=== PATIENT | male | born 1970 | race Two or more races ===

== ENCOUNTER 2022-04-28 14:25 | Outpatient (CLI) | payer OTHER ==
[2022-04-28 15:14] LABS: Hemoglobin 15.3 g/dL (13.5-17.5); Mean Corpuscular HGB CONC 36.5 g/dL (32.0-36.0); Mean Corpuscular Hemoglobin 33.2 pg (27.0-33.0); Mean Corpuscular Volume 90.9 fl (81.2-95.1); Mean Platelet Volume 9.2 fl (7.4-10.4); Platelet Count 164 10x3/uL (150-450); RBC Distribution Width 11.8 % (11.5-14.5); Red Blood Cell (RBC) Count 4.61 10x6/uL (4.32-5.72); White Blood Cell (WBC) Count 4.3 10x3/uL (3.5-10.5)
[2022-04-28 15:33] LABS: Anion Gap 20 mmol/L (10-20); BUN (Urea Nitrogen) 12 mg/dL (8.4-25.7); Calc. Creatinine Clearance 0 mL/min (70-130); Calcium 9.5 mg/dL (7.8-10.44); Carbon Dioxide 20 mmol/L (22-29); Chloride 88 mmol/L (98-107); Estimated GFR 83; Glucose 92 mg/dL (70-105); Potassium 4.7 mmol/L (3.5-5.1); Sodium 123 mmol/L (136-145)
== END 2022-04-28 14:26 | disposition home or self-care (01) ==
LOC: LABBT 14:25
PROVIDERS: ATTEND Neurological Surgery
DX: Z01.818 Encounter for other preprocedural examination (principal); M43.16 Spondylolisthesis, lumbar region
CPT/HCPCS: 80048; 85027; 93005; 93010

== ENCOUNTER 2022-05-02 07:02 | Day surgery (SDC) | payer OTHER ==
[2022-04-29 09:23] VITALS: BMI 22.3
[2022-05-02] MEDS ORDERED: Vancomycin 1 GM VIAL ONE (08:40)
[2022-05-02] MEDS ORDERED: Fentanyl 250 MCG/5 ML VIAL ONE (09:09)
[2022-05-02] MEDS ORDERED: Sodium Chloride 0.9% 100 ML ONE (09:10)
[2022-05-02] MEDS ORDERED: CEFAZOLIN 2 GM VIAL ONE (09:10)
[2022-05-02] MEDS ORDERED: PROPOFOL 200 MG/20 ML VIAL ONE (09:24)
[2022-05-02] MEDS ORDERED: Ketorolac Tromethamine 30 MG/ML VIAL ONE (09:24)
[2022-05-02] MEDS ORDERED: NEOSTIGMINE 3 MG/3 ML SYR 3 MG/3 ML SYRINGE ONE (09:24)
[2022-05-02] MEDS ORDERED: Ondansetron PF 4 MG/2 ML Vial ONE (09:24)
[2022-05-02] MEDS ORDERED: Lidocaine 1% PF 5 ML VIAL ONE (09:24)
[2022-05-02] MEDS ORDERED: Dexamethasone 20 MG/5 ML VIAL ONE (09:24)
[2022-05-02] MEDS ORDERED: Rocuronium Bromide 10 MG/ML (10ML VIAL) ONE (09:24)
[2022-05-02] MEDS ORDERED: PHENYLEPHRINE-NS 100 MCG/ML 10 ML SYRINGE ONE (09:24)
[2022-05-02] MEDS ORDERED: Glycopyrrolate 0.2 MG/ML 5 ML SYRINGE ONE (09:24)
[2022-05-02] MEDS ORDERED: Morphine Sulfate 2 MG/ML SYRINGE SLOW IVP PRN (10:28)
[2022-05-02] MEDS ORDERED: HYDROmorphone 2 MG/ML VIAL SLOW IVP PRN (10:28)
[2022-05-02] MEDS ORDERED: Promethazine HCl 25 MG/ML VIAL IVPB PRN (10:28)
[2022-05-02] MEDS ORDERED: PACU-Morphine 4MG/ML VIAL SLOW IVP PRN (10:28)
[2022-05-02] MEDS ORDERED: Promethazine HCl 25 MG/ML VIAL IM PRN (10:28)
[2022-05-02] MEDS ORDERED: Ondansetron HCl/PF 4 MG/2 ML Vial IVP PRN (10:28)
[2022-05-02] MEDS ORDERED: Midazolam HCl 2 mg/2 ml Vial ONE (10:41)
[2022-05-02] MEDS ORDERED: Tamsulosin HCl 0.4 MG CAP ONE (11:01)
[2022-05-02] MEDS ORDERED: Fentanyl 100 MCG/2 ML VIAL ONE (11:01)
[2022-05-02] MEDS ORDERED: traMADol HCl 50 MG TAB ONE (12:38)
[2022-05-02] MEDS ORDERED: Acetaminophen/Codeine 30-300mg Tablet ONE ×2 (13:39→17:56)
[2022-05-02] MEDS ORDERED: Lorazepam 2 MG/ML VIAL ONE (16:30)
== END 2022-05-02 18:02 | disposition home or self-care (01) ==
LOC: SDC 07:02
PROVIDERS: ATTEND Neurological Surgery
PROC: 0SG3071 Fusion of Lumbosacral Joint with Autologous Tissue Substitute, Posterior Approach, Posterior Column, Open Approach (ICD-10-PCS; principal; 2022-05-02)
DX: M43.17 Spondylolisthesis, lumbosacral region (principal); I10 Essential (primary) hypertension; Z86.16 Personal history of COVID-19; Z79.899 Other long term (current) drug therapy
CPT/HCPCS: C1713; C1768; C1776; J1100; J1885; J2060; J2250; J2405; J2704; J3010; J3370; J3490

== ENCOUNTER 2022-05-18 12:34 | Outpatient (CLI) | payer OTHER | END 2022-05-18 12:35 | disposition home or self-care (01) | LOC: TBSIIMAG 12:34 | PROVIDERS: ATTEND Neurological Surgery | DX: M43.16 Spondylolisthesis, lumbar region (principal); M47.816 Spondylosis without myelopathy or radiculopathy, lumbar region; Z98.890 Other specified postprocedural states | CPT/HCPCS: 72100 ==

== ENCOUNTER 2022-07-07 09:11 | Outpatient (CLI) | payer OTHER | END 2022-07-07 09:12 | disposition home or self-care (01) | LOC: TBSIIMAG 09:11 | PROVIDERS: ATTEND Neurological Surgery | DX: M47.26 Other spondylosis with radiculopathy, lumbar region (principal); M46.06 Spinal enthesopathy, lumbar region; Z98.890 Other specified postprocedural states | CPT/HCPCS: 72100 ==